=== PATIENT | female | born 1935 | race Caucasian/White ===

== ENCOUNTER 2019-05-02 02:05 | Emergency (ER) | payer MEDICARE ==
[~2019-05-02] VITALS: Ht 175.3 cm; Wt 86.0 kg
[~2019-05-02 02:05] MED LIST: NO HOME MEDS
[2019-05-02] MEDS ORDERED: LIDOcaine 1% w/epiNEPHrine 1:200,000 30ml vial IM ONE (03:35)
[2019-05-02] MEDS ORDERED: TETanus/Pertussis (Acell)/Diphther VAC/PF (Tdap-Adult) 0.5ml syringe IM ONE (03:35)
--- NOTE | 2019-05-02 04:30 | NUR ---
IRRIGATED LACERATION SITE WITH 1000 ML ns ORDERED. PT TOLERATED APPROPIRATLY . SITE WELL APPROXIMATED, AWAITING TO BE SUTURED
[2019-05-02 05:44] VITALS: BP 149/74
== END 2019-05-02 05:27 | disposition home or self-care (01) ==
LOC: ER 02:06
DX: S51.011A Laceration without foreign body of right elbow, initial encounter (principal); F03.90 Unspecified dementia, unspecified severity, without behavioral disturbance, psychotic disturbance, mood disturbance, and anxiety; M81.0 Age-related osteoporosis without current pathological fracture; F10.99 Alcohol use, unspecified with unspecified alcohol-induced disorder; Z98.890 Other specified postprocedural states; W22.8XXA Striking against or struck by other objects, initial encounter; Y93.89 Activity, other specified; Y92.89 Other specified places as the place of occurrence of the external cause; Y99.8 Other external cause status; Y90.9 Presence of alcohol in blood, level not specified
CPT/HCPCS: 12034; 73080; 90471; 99284